=== PATIENT | female | born 1960 | race Caucasian/White ===

== ENCOUNTER → 2022-06-24 12:09 | Outpatient (CLI) | payer OTHER, SELFPAY ==
[2022-06-24 13:33] LABS: Influenza A - CEPHEID Flu A NEGATIVE (NEGATIVE); Influenza B - CEPHEID Flu B NEGATIVE (NEGATIVE); Respiratory Syncytial Virus Negative (Negative)
[2022-06-24 13:34] LABS: COVID-19 CEPHEID 4-PLEX PCR Negative (Negative)
== END ==
PROVIDERS: PCP Family Medicine; Visit Provider Nurse Practitioner Family
DX: R05.9 Cough, unspecified (principal)
CPT/HCPCS: 0241U

== ENCOUNTER → 2023-04-16 10:09 | Outpatient (CLI) | payer MEDICARE, OTHER, SELFPAY ==
[2023-04-16 11:01] LABS: Add Manual Diff / Slide Review NO; Basophils Absolute Auto 0 /uL (0-100); Basophils Percent Auto 0.8 % (0-2); Eosinophils Absolute Auto 200 /uL (0-450); Eosinophils Percent Auto 3.4 % (2-4); Hematocrit 39.9 % (36-46); Hemoglobin 13.6 g/dL (12.0-16.0); Lymphocytes Absolute Auto 1400 /uL (1100-4500); Lymphocytes Percent Auto 25.3 % (25-40); Mean Corpuscular Hemoglobin 29.8 PG (26-34); Mean Corpuscular Volume 87.6 fL (80-100); Monocytes Absolute Auto 500 /uL (0-900); Monocytes Percent Auto 8.7 % (3-14); Neutrophils Absolute Auto 3400 /uL (1500-7000); Neutrophils Percent Auto 61.8 % (50-75); Platelet Count 275 X10^3/uL (150-400); Red Blood Cell Count 4.56 X10^6/uL (4.0-5.2); Red Cell Distribution Width 13.3 % (11.6-14.8); White Blood Cell Count 5.5 X10^3/uL (4.5-11.0)
[2023-04-16 11:29] LABS: Alanine Aminotransferase 22 IU/L (<35); Albumin 4.4 g/dL (3.5-5.0); Albumin Globulin Ratio 1.6 (1.0-2.8); Alkaline Phosphatase 66 U/L (38-126); Aspartate Aminotransferase 27 IU/L (14-36); BUN Creatinine Ratio 25.7 (6-22); Bilirubin Total 0.7 mg/dL (0.2-1.3); Blood Urea Nitrogen 19 mg/dL (7-17); Calcium 10.1 mg/dL (8.4-10.2); Carbon Dioxide 27 mmol/L (22-32); Chloride 105 mmol/L (98-107); Cholesterol 258 mg/dL (140-199); Estimated Glomerular Filt Rate > 60 mL/min (>60); Globulin 2.7 g/dL (1.7-4.1); Glucose 86 mg/dL (80-110); HDL Cholesterol 64 mg/dL (40-60); HEMOLYSIS < 15 (0-50); LDL Cholesterol Calculated 158 mg/dL (<100); Potassium 4.4 mmol/L (3.4-5.1); Sodium 139 mmol/L (137-145); Total Protein 7.1 g/dL (6.3-8.2); Triglycerides 179 mg/dL (35-150)
[2023-04-16 12:10] LABS: TSH w/ Reflex to FT4 5.01 uIU/mL (0.47-4.68)
[2023-04-16 12:37] LABS: Free T4, Direct Thyroxine 1.11 ng/dL (0.78-2.19)
== END ==
PROVIDERS: PCP Family Medicine; Referring Provider Family Medicine; Visit Provider Family Medicine
DX: Z00.00 Encounter for general adult medical examination without abnormal findings (principal); E03.9 Hypothyroidism, unspecified; G25.81 Restless legs syndrome; Z13.1 Encounter for screening for diabetes mellitus; Z13.6 Encounter for screening for cardiovascular disorders
CPT/HCPCS: 36415; 80053; 80061; 84439; 84443; 85025

== ENCOUNTER → 2023-06-14 10:41 | Outpatient (CLI) | payer MEDICARE, OTHER, SELFPAY ==
--- NOTE | 2023-06-14 10:44 | DI.MG.S_ITS ---
BILATERAL DIGITAL SCREENING MAMMOGRAM 3D/2D WITH CAD: 06/14/2023 CLINICAL: Routine screening. Comparison is made to exams dated: 03/07/2020 mammogram - [facility] [place], 01/10/2019 mammogram - [facility], 10/15/2017 mammogram, and 10/01/2017 mammogram - [facility] [place]. Both breasts are heterogeneously dense, which may obscure small masses (category c / 51-75% glandular tissue). Current study was also evaluated with a Computer Aided Detection (CAD) system. There is an oval equal density focal asymmetry in the right breast at 8 o'clock posterior depth. This is more prominent and increased in size. No other significant masses, calcifications, or other findings are seen in either breast. IMPRESSION: INCOMPLETE: NEEDS ADDITIONAL IMAGING EVALUATION The oval equal density focal asymmetry in the right breast is indeterminate. Additional views with possible ultrasound are recommended. Based on the Tyrer Cuzick model (a risk assessment model) the patient's lifetime risk is 8.0% and her 10 year risk is 3.9%. According to the ACR, ACS, and NCCN guidelines, an annual breast MRI exam along with mammogram is recommended if the patient's lifetime risk is 20% or greater. This exam was interpreted at Station ID: [id number]. NOTE: For mammograms, a report in lay terms will be sent to the patient. Approximately 15% of breast malignancies will not be visualized mammographically. In the management of a palpable breast mass, a negative mammogram must not discourage biopsy of a clinically suspicious lesion. Electronically Signed By: Antonio Bernal M.D. aty/:06/16/2023 08:35:01 letter sent: Additional Imaging Needed ACR BI-RADS Category 0: Incomplete 3340F
== END ==
PROVIDERS: PCP Family Medicine; Referring Provider Family Medicine; Visit Provider Family Medicine
DX: Z12.31 Encounter for screening mammogram for malignant neoplasm of breast (principal); N64.89 Other specified disorders of breast
CPT/HCPCS: 77063; 77067

== ENCOUNTER 2023-06-24 23:09 | Emergency (ER) | payer MEDICARE, OTHER, SELFPAY ==
[2023-06-24 23:17] VITALS: BP 144/66; PULSE 81; RESP 18; TEMP 36.4; O2SAT 99; BMI 21.4
--- NOTE | 2023-06-24 23:39 | ED.HA ---
HPI - Headache General Chief Complaint: Dizziness Stated Complaint: vertigo, dehydrated, migraine Time Seen by Provider: 06/24/23 23:13 Mode of arrival: Wheelchair History of Present Illness HPI Narrative: 63-year-old female with history of migraine headaches presents for migraine headache. Patient states that her migraines are accompanied with vertigo, vomiting, and can lead to dehydration if she cannot turn her migraine around. She tried her sumatriptan without relief. She states that this is her typical migraine. Related Data Home Medications Medication Instructions Recorded Confirmed cetirizine 10 mg tablet (Zyrtec) 10 mg PO DAILY PRN 10/09/22 04/16/23 cholecalciferol (vitamin D3) PO DAILY 10/09/22 04/16/23 Previous Rx's Medication Instructions Recorded bupropion HCl 150 mg tablet,12 hr 150 mg PO BID #180 ea 04/16/23 sustained-release (Wellbutrin SR) clonazepam 1 mg tablet 1 mg PO BEDTIME #90 tabs 04/16/23 conjugated estrogens 0.3 mg tablet 0.3 mg PO .three times a week #84 04/16/23 (Premarin) tabs sumatriptan succinate 50 mg tablet 50 mg PO ONCE #10 tabs 04/16/23 meclizine 25 mg tablet 25 mg PO BID PRN dizziness #30 tabs 06/25/23 promethazine 25 mg rectal 25 mg AR Q6H PRN nausea and 06/25/23 suppository vomiting #12 ea Allergies Allergy/AdvReac Type Severity Reaction Status Date / Time No Known Drug Allergies Allergy Verified 06/24/23 23:50 Review of Systems Review of Systems Narrative: Negative except as noted above Patient History Medical History (Updated 06/25/23 @ 01:32 by Sayda Alexandra MD) Encounter for initial annual wellness visit (AWV) in Medicare patient Allergies (~1987) Rubella (~1963) Mumps (~1963) Measles (~1963) Chicken pox (~1963) Hearing loss (~2019) Osteoporosis (~2021) Postmenopausal HRT (hormone replacement therapy) Migraine (~1987) Hypothyroidism Restless legs syndrome (RLS) (~1997) JAMAAL (generalized anxiety disorder) Vertigo (~2016) Surgical History (Updated 04/15/23 @ 19:50 by Bailey Owens) Anesthesia History of appendectomy (~02/1984) Status post hysterectomy (~11/1986) Family History (Updated 04/15/23 @ 19:53 by Bailey Owens) Father History of heart disease Mother Cancer Brother Cancer Sister Lung disease Sister Sepsis Social History Smoking Status: Never smoker Smoking Status: Never smoker Substance Use Type: does not use Exam Initial Vital Signs Initial Vital Signs: Vital Signs Temperature 97.5 F L 06/24/23 23:17 Pulse Rate 81 06/24/23 23:17 Respiratory Rate 18 06/24/23 23:17 Blood Pressure 144/66 H 06/24/23 23:17 Pulse Oximetry 99 06/24/23 23:17 Oxygen Delivery Method Room Air 06/24/23 23:17 Const: Awake, alert, in pain Cardiac: regular rate, regular rhythm RESP: unlabored, clear bilaterally, no wheezing GI: Atraumatic, soft, nontender MSK: Atraumatic, full range of motion, pulses equal Skin: Warm, Dry, intact, no rashes Neuro: AO x3, CN II-XII grossly intact, moves all extremities Course Orders Ordered: ED Orders 06/24/23 23:32 Complete Blood Count AUTO DIFF Stat Comprehensive Metabolic Panel Stat Troponin I Stat EKG-12 Lead Stat Discontinued Medications Diphenhydramine HCl (Diphenhydramine 50 Mg/Ml Vial) 50 mg IV NOW ONE Stop: 06/24/23 23:33 Last Admin: 06/24/23 23:50 Dose: 50 mg Documented By: BAUDILIO Sodium Chloride (Normal Saline 0.9%) 1,000 mls @ 150 mls/hr IV CONT CANDI Last Infusion: 06/25/23 01:57 Dose: 0 mls/hr Documented By: Admin: 06/24/23 23:51 Dose: 150 mls/hr Documented By: BAUDILIO Metoclopramide HCl (Metoclopramide 10 Mg/2 Ml Inj) 10 mg IV NOW ONE Stop: 06/24/23 23:33 Last Admin: 06/24/23 23:51 Dose: 10 mg Documented By: BAUDILIO Vital Signs Vital signs: Vital Signs - 8 hr 06/24/23 23:17 06/24/23 23:45 06/25/23 00:08 Temperature 97.5 F L Pulse Rate 81 74 84 Respiratory Rate 18 16 18 Blood Pressure 144/66 H 117/57 L 132/68 Pulse Oximetry 99 99 99 Oxygen Delivery Method Room Air Room Air Room Air 06/25/23 00:39 06/25/23 01:04 06/25/23 01:45 Temperature Pulse Rate 83 82 81 Respiratory Rate 17 16 18 Blood Pressure 132/62 106/51 L 113/55 L Pulse Oximetry 98 99 99 Oxygen Delivery Method Room Air Room Air Room Air MDM - Headache Differential Diagnosis Differential diagnosis: Likely migraine, tension headache and headache Lab Data 06/24/23 23:32 06/24/23 23:32 Labs: Lab Results 06/24/23 Range/Units 23:32 WBC 10.0 (4.5-11.0) X10^3/uL RBC 4.73 (4.0-5.2) X10^6/uL Hgb 14.0 (12.0-16.0) g/dL Hct 41.9 (36-46) % MCV 88.6 (80-100) fL MCH 29.6 (26-34) PG MCHC 33.4 (30-36) % RDW 13.5 (11.6-14.8) % Plt Count 237 (150-400) X10^3/uL Neut % (Auto) 91.6 H (50-75) % Lymph % (Auto) 5.7 L (25-40) % [place] % (Auto) 2.3 L (3-14) % Eos % (Auto) 0.1 L (2-4) % Baso % (Auto) 0.3 (0-2) % Neut # (Auto) 9200 H (5104-2629) /uL Lymph # (Auto) 600 L (7927-1905) /uL [place] # (Auto) 200 (0-900) /uL Eos # (Auto) 0 (0-450) /uL Baso # (Auto) 0 (0-100) /uL Sodium 139 (137-145) mmol/L Potassium 4.1 (3.4-5.1) mmol/L Chloride 106 (98-107) mmol/L Carbon Dioxide 23 (22-32) mmol/L BUN 19 H (7-17) mg/dL Creatinine 0.59 (0.52-1.04) mg/dL Estimated GFR > 60 (>60) mL/min BUN/Creatinine Ratio 32.2 H (6-22) Glucose 128 H (80-110) mg/dL Calcium 9.6 (8.4-10.2) mg/dL Total Bilirubin 0.7 (0.2-1.3) mg/dL AST 30 (14-36) IU/L ALT 23 (<35) IU/L Alkaline Phosphatase 77 (38-126) U/L Troponin I < 0.012 (0.01-0.034) ng/mL Total Protein 7.5 (6.3-8.2) g/dL Albumin 4.5 (3.5-5.0) g/dL Globulin 3.0 (1.7-4.1) g/dL Albumin/Globulin Ratio 1.5 (1.0-2.8) ECG Data Interpretation: Normal sinus rhythm, rate 66 beats per minute, normal axis, no ST T wave changes, no STEMI MDM Narrative Medical decision making narrative: Well-appearing patient with history of migraine headaches presenting for migraine headaches that are similar to previous. Not controlled with usual migraine medication or nausea medication. Since this is patient's typical migraine we will not repeat imaging at this time. We will order labs and give headache cocktail. Patient reassessed, feeling much improved after receiving migraine cocktail. She is sitting upright in bed and no longer has blankets over her eyes. Patient passed p.o. challenge, states she feels well enough to go home. She requested that her meclizine and Phenergan suppositories be refilled, these were sent to the patient's pharmacy of choice. Discharge Plan Departure Patient Disposition: Home Clinical Impression: Migraine Qualifiers: Migraine type: unspecified Status migrainosus presence: without status migrainosus Intractability: not intractable Qualified Code(s): G43.909 - Migraine, unspecified, not intractable, without status migrainosus Instructions: DI for Migraine Prescriptions: New promethazine 25 mg suppository 25 mg AR Q6H PRN (Reason: nausea and vomiting) Qty: 12 0RF meclizine 25 mg tablet 25 mg PO BID PRN (Reason: dizziness) Qty: 30 0RF No Action cetirizine [Zyrtec] 10 mg tablet 10 mg PO DAILY PRN cholecalciferol (vitamin D3) PO DAILY sumatriptan succinate 50 mg tablet 50 mg PO ONCE Qty: 10 5RF Rx Instructions: put on file Premarin 0.3 mg tablet 0.3 mg PO .three times a week Qty: 84 3RF Rx Instructions: cyclically clonazepam 1 mg tablet 1 mg PO BEDTIME Qty: 90 1RF Rx Instructions: administer 30 minutes before bedtime bupropion HCl [Wellbutrin SR] 150 mg tablet sustained-release 12 hr 150 mg PO BID Qty: 180 3RF Referrals: Teresa Issa DO [Primary Care Provider] - Stand Alone Forms: Patient Portal/API
[2023-06-24 23:44] LABS: Add Manual Diff / Slide Review NO; Basophils Absolute Auto 0 /uL (0-100); Basophils Percent Auto 0.3 % (0-2); Eosinophils Absolute Auto 0 /uL (0-450); Eosinophils Percent Auto 0.1 % (2-4); Hematocrit 41.9 % (36-46); Lymphocytes Absolute Auto 600 /uL (1100-4500); Lymphocytes Percent Auto 5.7 % (25-40); Mean Corpuscular HGB Conc 33.4 % (30-36); Mean Corpuscular Hemoglobin 29.6 PG (26-34); Mean Corpuscular Volume 88.6 fL (80-100); Monocytes Absolute Auto 200 /uL (0-900); Monocytes Percent Auto 2.3 % (3-14); Neutrophils Absolute Auto 9200 /uL (1500-7000); Neutrophils Percent Auto 91.6 % (50-75); Platelet Count 237 X10^3/uL (150-400); Red Blood Cell Count 4.73 X10^6/uL (4.0-5.2); Red Cell Distribution Width 13.5 % (11.6-14.8)
[2023-06-24 23:45] VITALS: BP 117/57; PULSE 74; RESP 16; O2SAT 99
[2023-06-24] MEDS: diphenhydrAMINE 50 MG/ML VIAL IV (23:50)
[2023-06-24 23:51] LABS: Alanine Aminotransferase 23 IU/L (<35); Albumin 4.5 g/dL (3.5-5.0); Albumin Globulin Ratio 1.5 (1.0-2.8); Alkaline Phosphatase 77 U/L (38-126); Aspartate Aminotransferase 30 IU/L (14-36); BUN Creatinine Ratio 32.2 (6-22); Bilirubin Total 0.7 mg/dL (0.2-1.3); Blood Urea Nitrogen 19 mg/dL (7-17); Calcium 9.6 mg/dL (8.4-10.2); Carbon Dioxide 23 mmol/L (22-32); Chloride 106 mmol/L (98-107); Estimated Glomerular Filt Rate > 60 mL/min (>60); Glucose 128 mg/dL (80-110); HEMOLYSIS < 15 (0-50); Potassium 4.1 mmol/L (3.4-5.1); Sodium 139 mmol/L (137-145); Total Protein 7.5 g/dL (6.3-8.2)
[2023-06-24] MEDS: METOCLOPRAMIDE 10 MG/2 ML INJ IV (23:51)
[2023-06-24] MEDS: SODIUM CHLORIDE 0.9% 1,000 ML 150 ML IV (23:51)
[2023-06-25 00:02] LABS: Troponin I < 0.012 ng/mL (0.01-0.034)
[2023-06-25 00:08] VITALS: BP 132/68; PULSE 84; RESP 18; O2SAT 99
[2023-06-25 00:39] VITALS: BP 132/62; PULSE 83; RESP 17; O2SAT 98
[2023-06-25 01:04] VITALS: BP 106/51; PULSE 82; RESP 16; O2SAT 99
[2023-06-25 01:45] VITALS: BP 113/55; PULSE 81; RESP 18; O2SAT 99
== END 2023-06-25 02:00 | disposition home or self-care (01) ==
PROVIDERS: Emergency Provider Emergency Medicine; PCP Family Medicine
DX: G43.909 Migraine, unspecified, not intractable, without status migrainosus (principal)
CPT/HCPCS: 36415; 80053; 84484; 85025; 93005; 96361; 96374; 96375; 99284; J1200; J2765

== ENCOUNTER → 2023-07-04 09:52 | Outpatient (CLI) | payer MEDICARE, OTHER, SELFPAY ==
--- NOTE | 2023-07-04 | DI.US.S_ITS ---
LIMITED ULTRASOUND OF RIGHT BREAST: 07/04/2023 CLINICAL: Patient returns today to evaluate a focal asymmetry in the right breast. Comparison is made to exams dated: 07/04/2023 mammogram, 06/14/2023 mammogram - [facility], 03/07/2020 mammogram - [facility] [place], 01/10/2019 mammogram - [facility], 10/15/2017 mammogram, and 10/01/2017 mammogram - [facility]. Color flow and real-time ultrasound of the right breast 8-10 o'clock region were performed. No sonographic correlate identified for focal asymmetry in the right breast. [employer] images were taken at 8, 9 and 10 o'clock, 7 cm from the nipple. IMPRESSION: PROBABLY BENIGN Right breast focal asymmetry in the posterior upper outer quadrant without sonographic correlate. Finding is probably benign. Recommend follow-up mammogram with possible ultrasound in 6 months to demonstrate stability. Findings and recommendations were conveyed to the patient during today's evaluation. This exam was interpreted at Station ID: [id number]. Electronically Signed By: Marce Tillman M.D., PH.D eb/:07/05/2023 01:44:03 letter sent: Followup Recommended Ultrasound BI-RADS: 3 Probably benign
--- NOTE | 2023-07-04 | DI.MG.S_ITS ---
UNILATERAL RIGHT DIGITAL DIAGNOSTIC MAMMOGRAM 3D/2D WITH ADDITIONAL VIEWS: 07/04/2023 CLINICAL: Additional evaluation requested from prior study. Comparison is made to exams dated: 06/14/2023 mammogram - [facility], 03/07/2020 mammogram - [facility], 01/10/2019 mammogram - [facility], 10/15/2017 mammogram, and 10/01/2017 mammogram - [facility]. The right breast is heterogeneously dense, which may obscure small masses (category c / 51-75% glandular tissue). There is a 1.1 cm focal asymmetry in the right breast upper outer quadrant posterior depth best seen on MLO view. This corresponds to focal asymmetry seen on recent screening mammogram. No other significant masses or calcifications are seen in the breast. IMPRESSION: INCOMPLETE: NEEDS ADDITIONAL IMAGING EVALUATION The 1.1 cm focal asymmetry in the right breast is indeterminate. An ultrasound is recommended for further evaluation and is scheduled to immediately follow this examination. Based on the Tyrer Cuzick model (a risk assessment model) the patient's lifetime risk is 8.0% and her 10 year risk is 3.9%. According to the ACR, ACS, and NCCN guidelines, an annual breast MRI exam along with mammogram is recommended if the patient's lifetime risk is 20% or greater. This exam was interpreted at Station ID: [id number]. NOTE: For mammograms, a report in lay terms will be sent to the patient. Approximately 15% of breast malignancies will not be visualized mammographically. In the management of a palpable breast mass, a negative mammogram must not discourage biopsy of a clinically suspicious lesion. Electronically Signed By: Marce Tillman M.D., PH.D eb/:07/05/2023 01:36:50 ACR BI-RADS Category 0: Incomplete 3340F
== END ==
PROVIDERS: PCP Family Medicine; Referring Provider Family Medicine; Visit Provider Family Medicine
DX: R92.8 Other abnormal and inconclusive findings on diagnostic imaging of breast (principal); N64.89 Other specified disorders of breast
CPT/HCPCS: 76642; 77065; G0279

== ENCOUNTER → 2023-12-31 09:18 | Outpatient (CLI) | payer MEDICARE, OTHER, SELFPAY ==
--- NOTE | 2023-12-31 09:20 | DI.MG.S_ITS ---
UNILATERAL RIGHT DIGITAL DIAGNOSTIC MAMMOGRAM 3D/2D: 12/31/2023 CLINICAL: Patient returns for a 6 month follow up of the right breast. Comparison is made to exams dated: 07/04/2023 ultrasound, 07/04/2023 mammogram, 06/14/2023 mammogram - [facility], and 03/07/2020 mammogram - [facility]. The right breast is heterogeneously dense, which may obscure small masses (category c / 51-75% glandular tissue). There is a stable focal asymmetry in the right breast at 9 o'clock posterior depth. This was not seen on the prior ultrasound. No other significant masses or calcifications are seen in the breast. IMPRESSION: PROBABLY BENIGN The stable focal asymmetry in the right breast is probably benign. A follow-up mammogram in 6 months is recommended to demonstrate stability. Based on the Tyrer Cuzick model (a risk assessment model) the patient's lifetime risk is 8.0% and her 10 year risk is 3.9%. According to the ACR, ACS, and NCCN guidelines, an annual breast MRI exam along with mammogram is recommended if the patient's lifetime risk is 20% or greater. This exam was interpreted at Station ID: [id number]. NOTE: For mammograms, a report in lay terms will be sent to the patient. Approximately 15% of breast malignancies will not be visualized mammographically. In the management of a palpable breast mass, a negative mammogram must not discourage biopsy of a clinically suspicious lesion. Electronically Signed By: Isac murillo/flaca:12/31/2023 10:46:39 letter sent: Followup Recommended ACR BI-RADS Category 3: Probably benign [id number]
== END ==
LOC: MAMMO 09:18
PROVIDERS: PCP Family Medicine; Referring Provider Family Medicine; Visit Provider Family Medicine
DX: R92.8 Other abnormal and inconclusive findings on diagnostic imaging of breast (principal); N64.89 Other specified disorders of breast
CPT/HCPCS: 77065; G0279

== ENCOUNTER → 2024-03-23 11:39 | Outpatient (CLI) | payer MEDICARE, OTHER, SELFPAY ==
--- NOTE | 2024-03-23 11:40 | DI.MG.S_ITS ---
BILATERAL DIGITAL DIAGNOSTIC MAMMOGRAM 3D/2D: 03/23/2024 CLINICAL: Short term follow up of the right breast, due for bilateral imaging. Comparison is made to exams dated: 06/14/2023 mammogram - [facility], 03/07/2020 mammogram - [facility], 01/10/2019 mammogram - [facility], and 12/31/2023 mammogram - [facility]. Both breasts are heterogeneously dense, which may obscure small masses (category c / 51-75% glandular tissue). There is a stable focal asymmetry in the right breast at 9 o'clock posterior depth. This was not seen on the prior ultrasound. No other significant masses, calcifications, or other findings are seen in either breast. IMPRESSION: PROBABLY BENIGN The stable focal asymmetry in the right breast is probably benign. A follow-up mammogram in 12 months is recommended to demonstrate long-term stability. Based on the Tyrer Cuzick model (a risk assessment model) the patient's lifetime risk is 8.0% and her 10 year risk is 3.9%. According to the ACR, ACS, and NCCN guidelines, an annual breast MRI exam along with mammogram is recommended if the patient's lifetime risk is 20% or greater. This exam was interpreted at Station ID: [id number]. NOTE: For mammograms, a report in lay terms will be sent to the patient. Approximately 15% of breast malignancies will not be visualized mammographically. In the management of a palpable breast mass, a negative mammogram must not discourage biopsy of a clinically suspicious lesion. Electronically Signed By: Parrish Nichole M.D. [facility] [place]/:03/23/2024 12:36:06 letter sent: Followup Recommended ACR BI-RADS Category 3: Probably benign [id number]
== END ==
PROVIDERS: PCP Family Medicine; Referring Provider Family Medicine; Visit Provider Family Medicine
DX: N64.89 Other specified disorders of breast (principal); R92.8 Other abnormal and inconclusive findings on diagnostic imaging of breast; R92.333 Mammographic heterogeneous density, bilateral breasts
CPT/HCPCS: 77066; G0279

== ENCOUNTER → 2024-04-26 11:00 | Outpatient (CLI) | payer MEDICARE, OTHER, SELFPAY ==
[2024-04-26 11:38] LABS: Hematocrit 41.2 % (36-46); Hemoglobin 13.8 g/dL (12.0-16.0); Mean Corpuscular HGB Conc 33.6 % (30-36); Mean Corpuscular Hemoglobin 30.1 PG (26-34); Mean Corpuscular Volume 89.6 fL (80-100); Platelet Count 264 X10^3/uL (150-400); Red Blood Cell Count 4.59 X10^6/uL (4.0-5.2); White Blood Cell Count 5.3 X10^3/uL (4.5-11.0)
[2024-04-26 12:12] LABS: Alanine Aminotransferase 21 IU/L (<35); Albumin 4.6 g/dL (3.5-5.0); Albumin Globulin Ratio 1.7 (1.0-2.8); Alkaline Phosphatase 75 U/L (38-126); Aspartate Aminotransferase 29 IU/L (14-36); Bilirubin Total 0.6 mg/dL (0.2-1.3); Blood Urea Nitrogen 15 mg/dL (7-17); Carbon Dioxide 23 mmol/L (22-32); Chloride 107 mmol/L (98-107); Cholesterol 255 mg/dL (140-199); Estimated Glomerular Filt Rate > 60 mL/min (>60); Globulin 2.7 g/dL (1.7-4.1); Glucose 83 mg/dL (80-110); HDL Cholesterol 66 mg/dL (40-60); HEMOLYSIS < 15 (0-50); LDL Cholesterol Calculated 159 mg/dL (<100); Potassium 4.3 mmol/L (3.4-5.1); Sodium 137 mmol/L (137-145); Total Protein 7.3 g/dL (6.3-8.2); Triglycerides 150 mg/dL (35-150)
[2024-04-26 12:37] LABS: TSH w/ Reflex to FT4 3.96 uIU/mL (0.47-4.68)
== END ==
PROVIDERS: PCP Family Medicine; Referring Provider Family Medicine; Visit Provider Family Medicine
DX: Z00.00 Encounter for general adult medical examination without abnormal findings (principal); E03.9 Hypothyroidism, unspecified; R53.82 Chronic fatigue, unspecified; E78.5 Hyperlipidemia, unspecified; F41.1 Generalized anxiety disorder; R73.01 Impaired fasting glucose; G43.009 Migraine without aura, not intractable, without status migrainosus
CPT/HCPCS: 36415; 80053; 80061; 83036; 84443; 85027

== ENCOUNTER → 2024-04-27 13:09 | Outpatient (CLI) | payer MEDICARE, OTHER, SELFPAY | PROVIDERS: PCP Family Medicine; Visit Provider Physician Assistant Medical | DX: R30.0 Dysuria (principal) | CPT/HCPCS: 87086 ==

== ENCOUNTER → 2025-05-05 08:27 | Outpatient (CLI) | payer MEDICARE, OTHER, SELFPAY ==
[2025-05-05 09:27] LABS: Alanine Aminotransferase 19 IU/L (<35); Albumin 4.2 g/dL (3.5-5.0); Albumin Globulin Ratio 1.8 (1.0-2.8); Alkaline Phosphatase 73 U/L (38-126); Blood Urea Nitrogen 11 mg/dL (7-17); Calcium 9.3 mg/dL (8.4-10.2); Carbon Dioxide 24 mmol/L (22-32); Chloride 106 mmol/L (98-107); Cholesterol 240 mg/dL (140-199); Estimated Glomerular Filt Rate > 60 mL/min (>60); Globulin 2.4 g/dL (1.7-4.1); Glucose 86 mg/dL (70-99); HDL Cholesterol 74 mg/dL (40-60); HEMOLYSIS 22 (0-50); Potassium 4.2 mmol/L (3.4-5.1); Sodium 138 mmol/L (137-145); Total Protein 6.6 g/dL (6.3-8.2); Triglycerides 108 mg/dL (35-150)
[2025-05-05 10:00] LABS: TSH w/ Reflex to FT4 5.33 uIU/mL (0.47-4.68)
[2025-05-05 13:36] LABS: Free T4, Direct Thyroxine 1.10 ng/dL (0.78-2.19)
== END ==
PROVIDERS: PCP Family Medicine; Referring Provider Family Medicine; Visit Provider Family Medicine
DX: Z00.00 Encounter for general adult medical examination without abnormal findings (principal); E03.9 Hypothyroidism, unspecified; F41.1 Generalized anxiety disorder; E78.5 Hyperlipidemia, unspecified; Z79.890 Hormone replacement therapy
CPT/HCPCS: 36415; 80053; 80061; 84439; 84443

== ENCOUNTER → 2025-05-09 15:35 | Outpatient (CLI) | payer MEDICARE, OTHER, SELFPAY | PROVIDERS: PCP Family Medicine; Referring Provider Family Medicine; Visit Provider Family Medicine | DX: Z00.00 Encounter for general adult medical examination without abnormal findings (principal); E03.9 Hypothyroidism, unspecified; F41.1 Generalized anxiety disorder; E78.5 Hyperlipidemia, unspecified; Z79.890 Hormone replacement therapy | CPT/HCPCS: 82274 ==